=== PATIENT | female | born 1960 | race African-American/Black ===

== ENCOUNTER 2017-02-26 12:01 | Emergency (ER) | payer OTHER ==
[2017-02-26 12:13] VITALS: BP 133/81; PULSE 73; TEMP 98.2; BMI 41.1
--- NOTE | 2017-02-26 13:16 | PDOC ---
History of Present Illness - General Chief Complaint: Chest Pain Stated Complaint: CHEST PAIN Time Seen by Provider: 02/26/17 12:34 History Source: Patient Exam Limitations: No Limitations - History of Present Illness Initial Comments: 02/26/17 13:05 The patient is a 56F with no PMH who presents to the ED with complaints of CP. The chest pain started last night as the patient was laying down and was not associated with nausea, sweating, or shortness of breath. The patient has been laying down all day secondary to painful knees which she is taking naproxen for. The pain is positional and changes when she moves around. The pain is worse with deep breaths and radiates to her back. The pain is located under her L breast and is described as a sharp pain. All: none Soc: stopped smoking, drinking, drugs 21 years ago Surg: bariatric surgery 2 years ago Past History - Past Medical History Allergies/Adverse Reactions: Allergies Allergy/AdvReac Type Severity Reaction Status Date / Time No Known Allergies Allergy Verified 02/26/17 12:08 Home Medications: Ambulatory Orders NK [No Known Home Medication] 02/26/17 Other medical history: DENIES. - Psycho/Social/Smoking Cessation Hx Suicidal Ideation: No Smoking Status: No Smoking History: Never smoked Have you smoked in the past 12 months: No Number of Cigarettes Smoked Daily: 0 Review of Systems - Review of Systems Able to Perform ROS?: Yes Is the patient limited [place] proficient: No Constitutional: No: Chills, Fever HEENTM: No: Throat Pain Respiratory: No: Cough, Shortness of Breath, Stridor, Wheezing, Productive cough Cardiac (ROS): Yes: Chest Pain. No: Lightheadedness, Palpitations, Chest Tightness ABD/GI: No: Constipated, Diarrhea, Nausea, Vomiting : No: Burning, Dysuria, Discharge Neurological: No: Headache, Numbness, Tingling, Weakness *Physical Exam - Vital Signs Last Vital Signs Temp Pulse Resp BP Pulse Ox 98.2 F 73 19 133/81 98 02/26/17 12:08 02/26/17 12:08 02/26/17 12:08 02/26/17 12:08 02/26/17 12:08 - Physical Exam General Appearance: Yes: Nourished, Obese HEENT: positive: Normal Voice, Hearing Grossly Normal Respiratory/Chest: positive: Chest Tender (Under L breast), Lungs Clear, Normal Breath Sounds. negative: Respiratory Distress, Labored Respiration, Crackles, Rales, Rhonchi, Stridor, Wheezing Cardiovascular: positive: Regular Rhythm, Regular Rate, S1, S2. negative: Diastolic Murmur, Systolic Murmur Gastrointestinal/Abdominal: positive: Flat, Soft. negative: Tender, Guarding, Rebound, Tenderness Musculoskeletal: negative: CVA Tenderness, CVA Tenderness (R), CVA Tenderness (L ) Extremity: positive: Normal Inspection, Normal Range of Motion. negative: Swelling, Calf Tenderness Integumentary: positive: Dry, Warm. negative: Cold, Clammy, Diaphoresis, Swelling, Ecchymosis Neurologic: positive: Fully Oriented, Alert, Normal Mood/Affect, Normal Response , Motor Strength 5/5 Heart Score/ECG Review - ECG Impressions Normal ECG: Yes ED Treatment Course - LABORATORY CBC & Chemistry Diagram: 02/26/17 13:15 02/26/17 13:15 - RADIOLOGY Radiology Studies Ordered: Category Date Time Status CHEST PA & LAT [RAD] Stat Radiology 02/26/17 12:55 Ordered Medical Decision Making - Medical Decision Making 02/26/17 13:18 The patient is a 56F with no PMH who presents to the ED with complaints of CP. The pain is most likely musculoskeletal but due to her immobilization all day yesterday, I am concerned for a PE. I have added a D-dimer in addition to the cardiac profile and basic labs and will reassess when the results return. 02/26/17 14:35 CXR normal. Labs WNL. Creatinine kinase elevated, unsure of why: could be musculoskeletal problems. 02/26/17 17:24 Repeat labs WNL. CK down to normal limits. Patient states she is feeling better and agrees for discharge with PCP follow up. Informed to return if symptoms worsen or new symptoms arise. *DC/Admit/Observation/Transfer Diagnosis at time of Disposition: Chest pain Qualifiers: Chest pain type: other chest pain Qualified Code(s): R07.89 - Other chest pain ; R07.8 - Other chest pain - Discharge Dispostion Disposition: HOME Condition at time of disposition: Improved Admit: No - Patient Instructions Printed Discharge Instructions: DI for Atypical Chest Pain, DI for Chest Pain Additional Instructions: Please return to the ER if symptoms persist, worsen, or if new symptoms arise. Please return if you have worsening chest pain, nausea, vomiting, and/or shortness of breath. Please follow up with your primary care doctor in 2-3 days.
[2017-02-26 13:32] LABS: EOSINOPHIL 3.1 % (0-4.5); MCH 27.5 pg (25.7-33.7); MCHC 32.7 g/dl (32.0-36.0); MEAN CELL VOLUME 84.1 fl (80-96); MEAN PLT VOLUME 8.5 fl (7.5-11.1); NEUTROPHILS 58.5 % (42.8-82.8); PLATELET COUNT 360 K/MM3 (134-434); RDW 13.8 % (11.6-15.6); WHITE BLOOD COUNT 6.3 K/mm3 (4.0-10.0)
[2017-02-26 13:57] LABS: ALBUMIN 3.9 g/dl (3.4-5.0); ANION GAP 8 (8-16); BILIRUBIN,TOTAL 0.7 mg/dL (0.2-1.0); CALCIUM 8.9 mg/dL (8.5-10.1); CO2 28 mmol/L (21-32); CREATININE 0.6 mg/dL (0.55-1.02); GLUCOSE,RANDOM 75 mg/dL (74-106); SGPT/ALT 14 U/L (12-78)
[2017-02-26 13:59] LABS: ALK PHOS 108 U/L (45-117); TROPONIN I < 0.02 ng/ml (0.00-0.05)
--- NOTE | 2017-02-26 14:01 | PDOC ---
Attending Attestation - Resident Resident Name: Amarjit Colunga - ED Attending Attestation I have performed the following: I have examined & evaluated the patient, The case was reviewed & discussed with the resident, I agree w/resident's findings & plan, Exceptions are as noted - HPI HPI: 02/26/17 13:59 56 F with no PMH presenting to ER with CP x 1 day. Pt reports left sided pain that is worse with certain positions. Not worse with exertion. Not worse with deep inspiration. No F/C. No cough. No leg swelling. Pt had an episode of CP like this several years ago and was told by her doctor it was anxiety. - Physicial Exam PE: 02/26/17 14:00 "GENERAL: Awake, alert, and fully oriented, in no acute distress HEAD: No signs of trauma EYES: PERRLA, EOMI, sclera anicteric, conjunctiva clear ENT: Auricles normal inspection, hearing grossly normal, nares patent, oropharynx clear without exudates. Moist mucosa NECK: Nontender, no stepoffs, Normal ROM, supple, no lymphadenopathy, JVD, or masses LUNGS: Breath sounds equal, clear to auscultation bilaterally. No wheezes, and no crackles HEART: Regular rate and rhythm, normal S1 and S2, no murmurs, rubs or gallops ABDOMEN: Soft, nontender, normoactive bowel sounds. No guarding, no rebound. No masses EXTREMITIES: Normal range of motion, no edema. No clubbing or cyanosis. No cords, erythema, or tenderness NEUROLOGICAL: Cranial nerves II through XII intact. 5/5 strength and sensation in all extremities, Normal speech, normal gait SKIN: Warm, Dry, normal turgor, no rashes or lesions noted. " - Medical Decision Making 02/26/17 14:00 56 F with chest pain that is atypical in nature. Low suspicion for PE, but will r/o with dimer. ACS unlikely as EKG is nonischemic and pain is atypical. - Labs, serial trops, ddimer - CXR - CTPE if indicated
[2017-02-26 14:07] LABS: CPK 204 IU/L (26-192); SGOT/AST 22 U/L (15-37)
[2017-02-26] MEDS ORDERED: KETOROLAC TROMETHAMINE 30 MG/1 ML VIAL IVPUSH ONE (16:12)
[2017-02-26] MEDS ORDERED: KETOROLAC TROMETHAMINE 30 MG/1 ML VIAL ONE (16:32)
[2017-02-26 17:10] LABS: CPK 118 IU/L (26-192); TROPONIN I < 0.02 ng/ml (0.00-0.05)
--- NOTE | 2017-02-27 13:57 | EKG ---
Test Reason : Blood Pressure : / mmHG Vent. Rate : 070 BPM Atrial Rate : 070 BPM P-R Int : 160 ms QRS Dur : 108 ms QT Int : 402 ms P-R-T Axes : 047 016 027 degrees QTc Int : 434 ms NORMAL SINUS RHYTHM MINIMAL VOLTAGE CRITERIA FOR LVH, MAY BE NORMAL VARIANT BORDERLINE ECG WHEN COMPARED WITH ECG OF 04-JUL-2011 12:37, T WAVE VARIATION Confirmed by KAREEM GONZALEZ MD ([id number]) on 02/27/2017 1:57:46 PM Referred By: Confirmed By:KAREEM GONZALEZ MD
== END 2017-02-26 17:51 | disposition home or self-care (01) ==
LOC: JER 12:01
PROC: 3E0333Z Introduction of Anti-inflammatory into Peripheral Vein, Percutaneous Approach (ICD-10-PCS; principal; 2017-02-26)
DX: R07.89 Other chest pain (principal); M25.561 Pain in right knee; M25.562 Pain in left knee
CPT/HCPCS: 36415; 71020-TC; 80053; 82553; 84484; 85025; 85379; 93005; 93010; 96374; 99281-25

== ENCOUNTER 2020-11-24 10:13 | Inpatient (IN) | payer OTHER ==
[2020-11-17 10:13] VITALS: BMI 38.9
[2020-11-24] MEDS ORDERED: TRANEXAMIC ACID 1000 MG/10 ML VIAL IVPUSH ONE (10:27)
[2020-11-24] MEDS ORDERED: CEFAZOLIN 2 GM/D5W 2 GM/50 ML ML IVPB ONE (10:27)
[2020-11-24] MEDS ORDERED: CELECOXIB 200 MG CAPSULE PO ONE (10:27)
[2020-11-24] MEDS ORDERED: CELECOXIB 200 MG CAPSULE ONE (11:02)
[2020-11-24] MEDS ORDERED: MIDAZOLAM HCL 2 MG/2 ML SINGLE DOSE VIAL ONE ×2 (11:29→13:33)
[2020-11-24] MEDS ORDERED: SODIUM CHLORIDE 0.9% P/F 10 ML VIAL IJ ONE (11:30)
[2020-11-24] MEDS ORDERED: BUPIVACAINE HCL 50 ML ONE ×2 (11:30→12:39)
[2020-11-24] MEDS ORDERED: BUPIVACAINE LIPOSOME/PF (EXPAREL) 266 MG/20 ML VIAL ONE (11:30)
[2020-11-24] MEDS ORDERED: ONDANSETRON 4 MG/2 ML VIAL IVPUSH PRN ×2 (11:53→13:16)
[2020-11-24] MEDS ORDERED: oxyCODONE HCL 5 MG TABLET PO PRN ×2 (11:54)
[2020-11-24] MEDS ORDERED: LACTATED RINGERS SOLUTION 1,000 ML IV SCH ×2 (12:00→13:30)
[2020-11-24] MEDS ORDERED: ACETAMINOPHEN 325 MG TABLET (FP) PO SCH (12:00)
[2020-11-24] MEDS ORDERED: ceFAZolin SODIUM 1 GM VIAL ONE ×2 (12:21→14:00)
[2020-11-24] MEDS ORDERED: VANCOMYCIN 1,000 MG VIAL (RESTRICTED TO ID ONLY) ONE (12:21)
[2020-11-24] MEDS ORDERED: MAGNESIUM HYDROX 2400MG/30ML ORAL SUSPENSION 30 ML CUP PO PRN (13:16)
[2020-11-24] MEDS ORDERED: MAG HYDROX/AL HYDROX/SIMETH 30 ML UNIT-DOSE CUP PO PRN (13:16)
[2020-11-24] MEDS ORDERED: PROPOFOL 20 ML ONE ×2 (13:51)
[2020-11-24] MEDS ORDERED: TRANEXAMIC ACID 1000 MG/10 ML VIAL ONE ×2 (14:02→15:37)
[2020-11-24] MEDS ORDERED: DEXAMETHASONE SOD PHOSPHATE 4 MG/1 ML VIAL ONE (14:19)
[2020-11-24] MEDS ORDERED: ONDANSETRON 4 MG/2 ML VIAL ONE ×3 (14:19→16:08)
[2020-11-24] MEDS ORDERED: GLYCOPYRROLATE 0.2 MG/1 ML VIAL ONE (15:50)
[2020-11-24] MEDS ORDERED: NEOSTIGMINE METHYLSULFATE 0.5 MG/1 ML - 10 ML MDV ONE (15:50)
[2020-11-24] MEDS ORDERED: ACETAMINOPHEN INJECTION 100 ML IVPB ONE (16:09)
[2020-11-24] MEDS ORDERED: ACETAMINOPHEN 1000 MG/100 ML VIAL (NON FORMULARY) IVPB ONE (16:10)
[2020-11-24] MEDS ORDERED: diazePAM CARPU-JECT 10 MG/2 ML DISP.SYRIN IVPUSH ONE (16:12)
[2020-11-24] MEDS: HYDROmorphone HCl 2 MG/ML VIAL IVPB PRN (18:34)
[2020-11-24] MEDS: oxyCODONE HCL 5 MG TABLET PO PRN (21:00)
[2020-11-24] MEDS: CEFAZOLIN 2 GM/D5W 2 GM/50 ML ML IVPB SCH (21:00)
[2020-11-24] MEDS: SENNOSIDES/DOCUSATE COMBO (SENNA PLUS) TABLET (UD) PO SCH (21:01)
[2020-11-24] MEDS: ACETAMINOPHEN 325 MG TABLET (FP) PO SCH (21:04)
[2020-11-24] MEDS ORDERED: oxyCODONE HCL 10 MG SUSTAINED ACTING TABLET PO SCH (22:00)
[2020-11-25] MEDS: CEFAZOLIN 2 GM/D5W 2 GM/50 ML ML IVPB SCH (02:43)
[2020-11-25] MEDS: oxyCODONE HCL 5 MG TABLET PO PRN ×5 (05:53→20:16)
[2020-11-25] MEDS: ASPIRIN 325 MG TABLET PO SCH (07:36)
[2020-11-25] MEDS: HYDROmorphone HCl 2 MG/ML VIAL IVPB PRN ×2 (07:37→22:25)
[2020-11-25 07:55] LABS: HEMATOCRIT 32.7 % (32.4-45.2); HEMOGLOBIN 10.4 GM/dl (10.7-15.3); MCHC 31.9 g/dl (32.0-36.0); MEAN CELL VOLUME 87.5 fl (80-96); MEAN PLT VOLUME 8.9 fl (7.5-11.1); PLATELET COUNT 308 10^3/uL (134-434); RBC 3.73 M/mm3 (3.60-5.2); WHITE BLOOD COUNT 12.9 K/mm3 (4.0-10.8)
[2020-11-25] MEDS: ACETAMINOPHEN 325 MG TABLET (FP) PO SCH ×4 (09:39→21:52)
[2020-11-25] MEDS: MULTIVITAMINS (DAILY MVI) TABLET (FP) PO SCH (09:40)
[2020-11-25] MEDS: SENNOSIDES/DOCUSATE COMBO (SENNA PLUS) TABLET (UD) PO SCH ×2 (09:40→21:16)
[2020-11-25] MEDS: PANTOPRAZOLE 40 MG TABLET PO SCH (09:40)
[2020-11-26] MEDS: ACETAMINOPHEN 325 MG TABLET (FP) PO SCH ×4 (05:00→22:31)
[2020-11-26] MEDS: oxyCODONE HCL 5 MG TABLET PO PRN ×4 (05:17→21:12)
[2020-11-26 08:31] LABS: HEMATOCRIT 28.3 % (32.4-45.2); HEMOGLOBIN 9.5 GM/dl (10.7-15.3); MCH 28.9 pg (25.7-33.7); MCHC 33.5 g/dl (32.0-36.0); MEAN CELL VOLUME 86.2 fl (80-96); MEAN PLT VOLUME 9.1 fl (7.5-11.1); PLATELET COUNT 246 10^3/uL (134-434); RBC 3.28 M/mm3 (3.60-5.2); RDW 12.7 % (11.6-15.6); WHITE BLOOD COUNT 13.7 K/mm3 (4.0-10.8)
[2020-11-26] MEDS: ASPIRIN 325 MG TABLET PO SCH (09:09)
[2020-11-26] MEDS: SENNOSIDES/DOCUSATE COMBO (SENNA PLUS) TABLET (UD) PO SCH ×2 (09:09→21:12)
[2020-11-26] MEDS: PANTOPRAZOLE 40 MG TABLET PO SCH (09:09)
[2020-11-26] MEDS: MULTIVITAMINS (DAILY MVI) TABLET (FP) PO SCH (09:09)
[2020-11-27] MEDS: ACETAMINOPHEN 325 MG TABLET (FP) PO SCH ×2 (03:11→10:11)
[2020-11-27] MEDS: oxyCODONE HCL 5 MG TABLET PO PRN ×2 (06:03→12:52)
[2020-11-27 06:18] VITALS: BP 137/64; PULSE 99; TEMP 99.6
[2020-11-27] MEDS: ASPIRIN 325 MG TABLET PO SCH (07:42)
[2020-11-27] MEDS: SENNOSIDES/DOCUSATE COMBO (SENNA PLUS) TABLET (UD) PO SCH (10:11)
[2020-11-27] MEDS: MULTIVITAMINS (DAILY MVI) TABLET (FP) PO SCH (10:11)
[2020-11-27] MEDS: PANTOPRAZOLE 40 MG TABLET PO SCH (10:11)
== END 2020-11-27 13:49 | disposition home health service (06) | DRG 470 ==
LOC: FM/S 10:13
PROVIDERS: ADMIT Orthopaedic Surgery; ATTEND Orthopaedic Surgery
PROC: 8E0Y0CZ Robotic Assisted Procedure of Lower Extremity, Open Approach (ICD-10-PCS; 2020-11-24)
PROC: 0SRC0J9 Replacement of Right Knee Joint with Synthetic Substitute, Cemented, Open Approach (ICD-10-PCS; principal; 2020-11-24 14:13)
DX: M17.11 Unilateral primary osteoarthritis, right knee (principal); Z98.84 Bariatric surgery status; E66.9 Obesity, unspecified; Z68.39 Body mass index [BMI] 39.0-39.9, adult
CPT/HCPCS: 36415; 73560-TC-RT-FY; 85027; 94760; 97010-GP; 97116-GP; C9803; J0131; U0003; U0005

== ENCOUNTER 2022-05-16 04:05 | Day surgery (SDC) | payer OTHER ==
[2022-05-13 09:45] VITALS: BMI 35.3
[2022-05-16] MEDS ORDERED: MIDAZOLAM HCL 2 MG/2 ML SINGLE DOSE VIAL ONE (08:43)
[2022-05-16] MEDS ORDERED: FENTANYL CITRATE/PF 50 MCG/ML VIAL ONE ×2 (08:43→08:44)
[2022-05-16] MEDS ORDERED: PROPOFOL 20 ML ONE ×2 (08:43→09:36)
[2022-05-16] MEDS ORDERED: BUPIVACAINE HCL/PF 0.5% (5MG/ML) 10 ML VIAL ONE (09:01)
[2022-05-16] MEDS ORDERED: LIDOCAINE HCL 1%, 10 MG/ML (20ML VIAL) ONE (09:01)
[2022-05-16] MEDS ORDERED: ceFAZolin SODIUM 1 GM VIAL ONE (09:18)
[2022-05-16] MEDS ORDERED: ceFAZolin 2 GRAM PREMIX BAG IVPB ONE (09:20)
[2022-05-16] MEDS ORDERED: BUPIVACAINE HCL/PF 0.5% (5 MG/ML) 30 ML VIAL IJ ONE ×2 (09:39)
[2022-05-16] MEDS ORDERED: LIDOCAINE HCL 1%, 10 MG/ML (20ML VIAL) NR ONE ×2 (09:39)
[2022-05-16] MEDS ORDERED: oxyCODONE HCL 5 MG TABLET PO PRN (10:17)
[2022-05-16] MEDS ORDERED: ONDANSETRON 4 MG/2 ML VIAL IVPUSH PRN (10:17)
[2022-05-16] MEDS ORDERED: PROMETHAZINE HCL 25 MG/1 ML VIAL IVPUSH PRN (10:17)
[2022-05-16] MEDS ORDERED: ACETAMINOPHEN 1000 MG/100 ML BAG IVPB PRN (10:18)
[2022-05-16] MEDS ORDERED: LACTATED RINGERS SOLUTION 1,000 ML IV SCH (10:30)
[2022-05-16] MEDS ORDERED: ACETAMINOPHEN INJECTION 100 ML IVPB ONE (10:37)
[2022-05-16] MEDS ORDERED: ACETAMINOPHEN 1000 MG/100 ML BAG IVPB ONE (10:40)
[2022-05-16 11:10] VITALS: RESP 20
[2022-05-16 12:24] VITALS: BP 150/70; PULSE 78; TEMP 98
== END 2022-05-16 12:24 | disposition home or self-care (01) ==
LOC: JASU-SURG 04:05
PROVIDERS: ATTEND Orthopaedic Surgery
PROC: 01N50ZZ Release Median Nerve, Open Approach (ICD-10-PCS; principal; 2022-05-16 09:00)
PROC: 0LB80ZZ Excision of Left Hand Tendon, Open Approach (ICD-10-PCS; 2022-05-16 09:00)
DX: G56.02 Carpal tunnel syndrome, left upper limb (principal); M65.342 Trigger finger, left ring finger; M65.832 Other synovitis and tenosynovitis, left forearm
CPT/HCPCS: 88304-TC; 94760

== ENCOUNTER 2023-06-01 04:18 | Day surgery (SDC) | payer OTHER ==
[2023-05-30 17:23] VITALS: BMI 37.2
[2023-06-01] MEDS ORDERED: BUPIVACAINE HCL/PF 0.5% (5MG/ML) 10 ML VIAL ONE (09:50)
[2023-06-01] MEDS ORDERED: LIDOCAINE HCL 1%, 10 MG/ML (20ML VIAL) ONE (09:50)
[2023-06-01] MEDS ORDERED: LIDOCAINE HCL 1%, 10 MG/ML (20ML VIAL) INF ONE (10:46)
[2023-06-01 16:10] VITALS: BP 120/70; PULSE 80; RESP 18; TEMP 98
== END 2023-06-01 14:00 | disposition home or self-care (01) ==
LOC: JASU-SURG 04:18
PROVIDERS: ATTEND Orthopaedic Surgery
PROC: 015D3ZZ Destruction of Femoral Nerve, Percutaneous Approach (ICD-10-PCS; principal; 2023-06-01 11:00)
DX: M17.12 Unilateral primary osteoarthritis, left knee (principal)